=== PATIENT | female | born 1970 | race Caucasian/White ===

== ENCOUNTER 2024-02-21 07:40 | Day surgery (SDC) | payer OTHER ==
[~2024-02-21] VITALS: Ht 152.4 cm; Wt 83.5 kg
[2024-02-21] MEDS ORDERED: SIMETHICONE 40 MG/0.6 ML ML ONE (08:02)
[2024-02-21] MEDS ORDERED: MEPERIDINE 100 MG INJ. 100 MG/ML VIAL ONE (08:03)
[2024-02-21] MEDS ORDERED: MIDAZOLAM HCL 5 MG/5 ML VIAL ONE (08:03)
[2024-02-21 09:20] VITALS: O2SAT 99
[2024-02-21 16:56] VITALS: BP_SYST 100; PULSE 64; RESP 18; TEMP 96.8
== END 2024-02-21 10:33 | disposition home or self-care (01) ==
LOC: SDS 07:40 → SMU 07:45 → SDS 10:33
PROVIDERS: ATTEND Internal Medicine
DX: Z12.11 Encounter for screening for malignant neoplasm of colon (principal); K63.5 Polyp of colon; K62.1 Rectal polyp; K64.8 Other hemorrhoids
CPT/HCPCS: 45385; 45380; 88305; 99152; G0378; J2250; J2175